=== PATIENT | female | born 1985 | race American Indian/Alaskan Native ===

== ENCOUNTER 2020-12-27 12:58 | Emergency (ER) | payer SELFPAY ==
[2020-12-27 14:47] VITALS: BP 159/108
--- NOTE | 2020-12-27 15:41 | Emergency Department Report ---
ED General Adult HPI - General Chief complaint: Abdominal Pain Stated complaint: ABD PAIN Time Seen by Provider: 12/27/20 14:49 Source: patient Mode of arrival: Ambulatory Limitations: No Limitations - History of Present Illness Initial comments: 35-year-old female patient with history of recurrent bacterial vaginosis presents to the emergency department with complaints of vaginal discharge starting this week. Patient states symptoms are consistent with prior episodes of bacterial vaginosis. She is monogamous and does not have any concerns for STD exposure. She is currently visiting from out of town. Denies fever, chills, abdominal pain, pelvic pain, nausea, vomiting, diarrhea, constipation, vaginal bleeding. Denies all other complaints at this time. - Related Data Previous Rx's Medication Instructions Recorded Last Taken Type metroNIDAZOLE [Flagyl] 500 mg PO Q12HR 7 Days tab 12/27/20 Unknown Rx Allergies Allergy/AdvReac Type Severity Reaction Status Date / Time No Known Allergies Allergy Verified 12/27/20 14:48 ED Review of Systems ROS: Stated complaint: ABD PAIN Other details as noted in HPI Other: GENERAL: Negative for fever, chills, weight change, anorexia, fatigue. ENT: Negative for ear pain, difficulty hearing, sore throat, nasal congestion, epistaxis. CARDIOVASCULAR: Negative for chest pain, palpitations, lower extremity swelling. PULMONARY: Negative for cough, dyspnea, wheezing, orthopnea, cyanosis. GASTROINTESTINAL: Negative for abdominal pain, nausea, vomiting, diarrhea, constipation. GENITOURINARY: Positive for vaginal discharge. MUSCULOSKELETAL: Negative for joint pain, joint swelling, myalgias, back pain, neck pain. NEUROLOGICAL: Negative for headache, seizure, syncope, paresthesias, weakness. INTEGUMENTARY: Negative for erythema, rash, diaphoresis, laceration, ecchymosis. HEMATOLOGICAL: Negative for hemoptysis, hematemesis, hematochezia, hematuria. PSYCHIATRIC: Negative for hallucinations, suicidal ideation, homicidal ideation, anxiety, depression. ED Past Medical Hx - Past Medical History Hx Hypertension: Yes - Surgical History Past Surgical History?: No - Social History Smoking Status: Never Smoker Substance Use Type: None - Medications Home Medications: Home Medications Medication Instructions Recorded Confirmed Last Taken Type metroNIDAZOLE [Flagyl] 500 mg PO Q12HR 7 Days tab 12/27/20 Unknown Rx ED Physical Exam - General Limitations: No Limitations - Other Other exam information: General: Awake and alert. No acute distress. Head: Atraumatic, normocephalic. Eyes: EOMI. Pupils are equal and round. Normal sclera and conjunctiva. ENT: Oral mucosa is moist. Normal pharyngeal exam. Neck: Supple. No lymphadenopathy. Pulmonary: No respiratory distress. Clear to auscultation bilaterally. Cardiac: Regular rate and rhythm. Pulses are palpable and equal bilaterally. No lower extremity cyanosis or edema. Skin: Warm and dry. No rashes. Abdomen: Soft, non-tender, non-protuberant. No guarding, rigidity, or rebound. Bowel sounds are normal. No organomegaly or masses noted. 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 Normal external inspection. Cervical os is closed. There is no cervical motion tenderness. No blood in the vaginal vault. There is a mild amount of thin white discharge. No adnexal tenderness or masses. No uterine tenderness. Back: Normal alignment. No CVA tenderness. Extremities: Symmetrical. Full range of motion intact. Neurological: Alert and oriented, appropriately interactive, no focal deficits. Psych: Cooperative. Appropriate mood and affect. Speech is evenly metered. Thoughts are logically construed. ED Course Vital Signs 12/27/20 14:45 Temperature 98.3 F Pulse Rate 68 Respiratory 20 Rate Blood Pressure 159/108 O2 Sat by Pulse 100 Oximetry ED Medical Decision Making - Medical Decision Making Differential diagnosis including but not limited to: urinary tract infection, sexually transmitted disease, candidiasis, bacterial vaginosis, pelvic inflammatory disease, On reevaluation, patient remains stable. She is afebrile. Vital signs are stable. Abdominal exam is benign. Patient has no concerns for STD exposure. Wet prep shows clue cells consistent with bacterial vaginosis. Patient will be discharged home with prescription for Flagyl and advised to follow-up with her resort housekeeper this week. Emphasized importance of refraining from alcohol intake while taking this medication. Patient expressed understanding and is agreeable to plan of care. Strict return precautions provided. Repeat exam is unremarkable and benign. History, exam, diagnostic testing, and current condition do not suggest worrisome pathology to warrant further testing, continued ED treatment, admission, or surgical evaluation at this point. Given the low probability of a significant medical illness, it would be more likely to result in harm than benefit to perform further testing at this stage. Discussed findings, presumptive diagnosis, need for follow-up and specific signs/symptoms that should prompt immediate return to the emergency department. Instructions were explained in detail to the patient in addition to giving written discharge information. Patient expressed understanding and was given the opportunity to ask questions, all of which were satisfactorily answered prior to discharge home. Of note, patient's blood pressure was noted to be elevated in the emergency department. Patient does have a prior history of hypertension. Specifically, the patient denies chest pain, shortness of breath, palpitations, syncope, headache, vision changes. Neurological exam is nonfocal and remainder of vital signs are stable. No clinical indication for further diagnostic work-up and/or initiation of antihypertensive therapy at this time per ACEP asymptomatic hypertension guidelines. Patient was encouraged to follow-up with primary care provider for blood pressure recheck. Lifestyle modifications recommended. Critical care attestation.: If time is entered above; I have spent that time in minutes in the direct care of this critically ill patient, excluding procedure time. ED Disposition Clinical Impression: Bacterial vaginosis Disposition: - TO HOME OR SELFCARE Is pt being admited?: No Does the pt Need Aspirin: No Condition: Stable Instructions: Bacterial Vaginosis, [id number], Bacterial Vaginosis (ED), Abdominal Pain (ED) Additional Instructions: Take Flagyl with food as directed. Do not consume any alcohol-containing products while taking this medication. Follow-up with your hide and skin colerer this week. Call tomorrow to schedule appointment. Return to the emergency department immediately for new or worsening symptoms. Specifically, return to the emergency department immediately for fever, abdominal pain, pelvic pain, abnormal vaginal bleeding, or any other concerns. Prescriptions: metroNIDAZOLE [Flagyl] 500 mg PO Q12HR 7 Days tab Referrals: [facility] [Provider Group] - 3-5 Days Forms: STI Treatment and Prevention Time of Disposition: 15:52
[2020-12-27 15:46] LABS: Bilirubin,Urine NEG (Negative); Blood,Urine SM (Negative); Color,Urine Yellow (Yellow); Mucus,Urine 2+ /HPF; Protein,Urine <15 mg/dL mg/dL (Negative); Urobilinogen,Urine < 2.0 mg/dL (<2.0)
[2020-12-27 15:51] LABS: HCG Qualitative,Urine Negative (Negative)
== END 2020-12-27 16:41 | disposition home or self-care (01) ==
LOC: ED 12:58
DX: N76.0 Acute vaginitis (principal); B96.89 Other specified bacterial agents as the cause of diseases classified elsewhere; I10 Essential (primary) hypertension; Z79.899 Other long term (current) drug therapy
CPT/HCPCS: 81001; 81025; 87210